=== PATIENT | male | born 1960 | race Caucasian/White ===

== ENCOUNTER 2020-03-08 12:40 | Inpatient (IN) ==
[~2020-03-08 12:40] MED LIST: Vancomycin 1,000 MG, Sodium Chloride IRRigation 1,000 ML IR ONE
[2020-03-08] MEDS ORDERED: CeFAZolin Syr 2,000MG/20 ML 2,000 MG/20 ML SYRINGE IVPB ONE (13:24)
[2020-03-08] MEDS ORDERED: Vancomycin 1,250 MG/262.5 ML IV.SOLN IVPB ONE (13:24)
[2020-03-08] MEDS ORDERED: Ringers Solution, Lactated 1,000 ML IVC SCH ×2 (13:30→14:30)
[2020-03-08] MEDS ORDERED: *HR* FentaNYL (PF) 100 MCG/2 ML VIAL ONE ×2 (13:44→15:48)
[2020-03-08] MEDS ORDERED: *HR* Midazolam HCl 2 MG/2 ML VIAL ONE (13:44)
[2020-03-08] MEDS ORDERED: *HR* Propofol 200 MG/20 ML VIAL IVP ONE (13:44)
[2020-03-08] MEDS ORDERED: Heparin 1,000 UNITS/500 mL 500 ML ONE (13:45)
[2020-03-08] MEDS ORDERED: Ondansetron 4 MG/2 ML VIAL IVP ONE (14:26)
[2020-03-08] MEDS ORDERED: *HR* OxyCODONE Immed Rel 5 MG TABLET PO PRN ×4 (14:26→19:50)
[2020-03-08] MEDS ORDERED: *HR* HYDROmorphone PF 0.5 MG/0.5 ML SYRINGE IVP PRN (14:26)
[2020-03-08] MEDS ORDERED: Acetaminophen IV 1,000 MG/100 ML BAG ONE (14:59)
[2020-03-08] MEDS ORDERED: *HR* Heparin 5,000 UNIT/ML VIAL ONE (15:39)
[2020-03-08] MEDS ORDERED: Lidocaine HCL 4 ML Topical Solution (Laryng-O-Jet Kit Sterile Pak) TP ONE (15:41)
[2020-03-08] MEDS ORDERED: *HR* Rocuronium Bromide 50 MG/5 ML VIAL ONE (15:41)
[2020-03-08] MEDS ORDERED: Ondansetron 4 MG/2 ML VIAL ONE (15:41)
[2020-03-08] MEDS ORDERED: Lidocaine -MPF 2% 2 ML VIAL ONE (15:41)
[2020-03-08] MEDS ORDERED: *HR* Phenylephrine 10 MG/ML VIAL ONE (15:42)
[2020-03-08] MEDS ORDERED: Naloxone 0.4 MG/ML INJ IVP PRN ×2 (16:52→19:50)
[2020-03-08] MEDS ORDERED: Acetaminophen 325 MG TABLET PO PRN ×3 (16:52→19:50)
[2020-03-08] MEDS ORDERED: *HR* HYDROcodone/Acet 5/325 mg TABLET PO PRN ×3 (16:52→19:50)
[2020-03-08] MEDS ORDERED: *HR* Labetalol 20 MG/4 ML SYRINGE IVP PRN ×2 (16:52→19:50)
[2020-03-08] MEDS ORDERED: Ondansetron 4 MG/2 ML VIAL IVP PRN ×2 (16:52→19:50)
[2020-03-08] MEDS ORDERED: *HR* Dextrose 50 % in Water (Vial) 50 ML VIAL IVP PRN ×2 (16:57→19:50)
[2020-03-08] MEDS ORDERED: D5% in Water 1,000 ML IVC PRN ×2 (16:57→19:50)
[2020-03-08] MEDS ORDERED: Dextrose Gel 15 GM/37.5 ML TUBE PO PRN ×4 (16:57→19:50)
[2020-03-08] MEDS ORDERED: 0.9 % Sodium Chloride 1,000 ML IVC SCH ×2 (17:00→19:50)
[2020-03-08] MEDS ORDERED: *HR* Metoprolol 5 MG/5 ML VIAL IVP SCH (18:00)
[2020-03-08] MEDS: CeFAZolin 2 GM/120 ML BAG IVPB SCH (20:55)
[2020-03-08] MEDS ORDERED: Insulin LISPRO 300 UNITS/3 ML VIAL SQ SCH ×2 (21:00)
[2020-03-08] MEDS ORDERED: CeFAZolin 2 GM/120 ML BAG IVPB SCH (21:30)
[2020-03-08] MEDS: *HR* Metoprolol 5 MG/5 ML VIAL IVP SCH (22:52)
[2020-03-09] MEDS ORDERED: Vancomycin 1,250 MG/262.5 ML IV.SOLN IVPB ONE ×2 (03:00)
[2020-03-09 04:25] LABS: Basophils # 0.1 K/mcL (0.0-0.2); Basophils % 0.7 %; Eosinophils # 0.4 K/mcL (0.0-0.6); Eosinophils % 3.9 %; Hematocrit 38.1 % (37.5-50.1); Hemoglobin 12.5 g/dL (12.9-16.9); Immature Granulocytes % 0.3 % (0-4); Lymphocytes # 1.8 K/mcL (0.6-4.6); Lymphocytes % 20.4 %; Mean Corpuscular HGB Conc 32.8 g/dL (31.6-35.5); Mean Corpuscular Volume 97.4 fL (83.0-100.0); Monocytes # 0.6 K/mcL (0.0-1.3); Monocytes % 6.3 %; Neutrophils # 6.2 K/mcL (1.6-8.9); Platelet Count 195 K/mcL (140-400); Red Blood Count 3.91 M/mcL (4.19-5.50); Segmented Neutrophils % 68.4 %
[2020-03-09 04:34] LABS: BUN/Creatinine Ratio 16 (6-26); Blood Urea Nitrogen 14 mg/dL (6-20); Calcium 8.8 mg/dL (8.6-10.3); Carbon Dioxide 24 mEq/L (23-29); Chloride 105 mEq/L (98-107); Glucose 104 mg/dL (70-105); Osmolality,Calculated 287 (280-300); Potassium 3.7 mEq/L (3.5-5.1); Sodium 138 mEq/L (136-145); eGFR For African Americans > 60 (> 60); eGFR For Non-African Americans > 60 (> 60)
[2020-03-09] MEDS: CeFAZolin 2 GM/120 ML BAG IVPB SCH (05:36)
[2020-03-09] MEDS: *HR* Metoprolol 5 MG/5 ML VIAL IVP SCH (05:37)
[2020-03-09] MEDS ORDERED: *HR* Heparin 5,000 UNIT/ML VIAL SQ SCH ×2 (06:00)
[2020-03-09 07:22] VITALS: BP 178/88
[2020-03-09] MEDS ORDERED: Insulin LISPRO 300 UNITS/3 ML VIAL SQ SCH ×2 (07:30)
[2020-03-09] MEDS ORDERED: Nicotine 21 MG PATCH.TD24 TD SCH ×2 (09:00)
[2020-03-09] MEDS ORDERED: Aspirin Enteric Coated 81 MG Tablet PO SCH ×2 (09:00)
== END 2020-03-09 10:19 | disposition home or self-care (01) | DRG 272 ==
LOC: SAMDAY 12:40 → 2NNU 19:44
PROVIDERS: ADMIT Surgery; ATTEND Surgery

== ENCOUNTER 2021-03-30 06:18 | Observation (INO) ==
[2021-03-30] MEDS ORDERED: Naloxone 0.4 MG/ML INJ IVP PRN (09:46)
[2021-03-30] MEDS ORDERED: *HR* HYDROcodone/Acet 5/325 mg TABLET PO PRN (09:46)
[2021-03-30] MEDS ORDERED: *HR* OxyCODONE Immed Rel 5 MG TABLET PO PRN (09:46)
[2021-03-30] MEDS ORDERED: Melatonin 3 MG TABLET PO PRN (09:46)
[2021-03-30] MEDS ORDERED: Ondansetron 4 MG/2 ML VIAL IVP PRN (09:46)
[2021-03-30] MEDS ORDERED: Acetaminophen 325 MG TABLET PO PRN (09:46)
[2021-03-30] MEDS ORDERED: Dextrose Gel 15 GM/37.5 ML TUBE PO PRN ×2 (09:50)
[2021-03-30] MEDS ORDERED: D5% in Water 1,000 ML IVC PRN (09:50)
[2021-03-30] MEDS ORDERED: *HR* Dextrose 50 % in Water (Vial) 50 ML VIAL IVP PRN (09:50)
[2021-03-30] MEDS ORDERED: *HR* LORazepam 2 MG/ML VIAL IVP PRN ×3 (09:51)
[2021-03-30] MEDS ORDERED: Metoclopramide 10 MG/2 ML VIAL IVP ONE ×2 (10:17→13:51)
[2021-03-30 10:23] LABS: Sodium, Urine 12.8 mEq/L
[2021-03-30] MEDS ORDERED: Insulin LISPRO 300 UNITS/3 ML VIAL SUBQ SCH (11:30)
[2021-03-30 11:34] VITALS: BP 162/66; PULSE 100; TEMP 98; O2SAT 94
[2021-03-30 12:06] LABS: Estimated Average Glucose 143 mg/dl; Hemoglobin A1C 6.6 %
[2021-03-30 12:09] LABS: BUN/Creatinine Ratio 17 (6-26); Blood Urea Nitrogen 14 mg/dL (8-23); Calcium 9.4 mg/dL (8.6-10.3); Carbon Dioxide 22 mEq/L (23-29); Chloride 99 mEq/L (98-107); Glucose 137 mg/dL (70-105); Osmolality,Calculated 279 (280-300); Sodium 133 mEq/L (136-145); eGFR For African Americans > 60 (> 60); eGFR For Non-African Americans > 60 (> 60)
[2021-03-30 12:34] LABS: Magnesium 1.9 mg/dL (1.6-2.6)
[2021-03-31] MEDS ORDERED: Vitamin B Complex/Vit C/Vit E 1 EACH TABLET PO SCH (09:00)
[2021-03-31] MEDS ORDERED: Thiamine (B-1) 100 MG TABLET PO SCH (09:00)
[2021-03-31] MEDS ORDERED: Folic Acid 1 MG TABLET PO SCH (09:00)
== END 2021-03-30 16:10 | disposition left against medical advice (07) ==
LOC: CDU → SUATTDRO 09:13
PROVIDERS: ADMIT Student in an Organized Health Care Education/Training Program; ATTEND Internal Medicine